=== PATIENT | male | born 1995 | race Caucasian/White ===

== ENCOUNTER 2016-10-08 21:40 | Emergency (ER) | payer BC ==
[~2016-10-08] VITALS: Ht 177.8 cm; Wt 106.2 kg
[2016-10-08 21:46] VITALS: TEMP 36.6; Ht 177.8 cm; Wt 106.2 kg
[2016-10-08] MEDS ORDERED: CEFTRIAXONE SOD INJ 1 GM ADDVIAL IV STA (22:42)
[2016-10-08] MEDS ORDERED: SULFAMETHOXAZOLE/TRIMETHOPRIM DS 800/160MG TAB PO ONE (22:45)
[2016-10-08] MEDS ORDERED: CEPHALEXIN 500MG HOME PACK 1 EA BTL PO ONE (22:45)
[2016-10-08] MEDS ORDERED: SEPTRA DS HOME PACK 1 EA VIAL PO ONE (22:45)
[2016-10-08] MEDS ORDERED: CEPHALEXIN MONOHYDRATE 250 MG CAP PO ONE (22:45)
[2016-10-08 22:59] LABS: BASO % 0.3 %; BASO ABS # 0.02 K/uL (0-0.2); COMPLETE YES; EOS % 2.6 %; HEMATOCRIT 43.2 % (42-52); IG% 0.1 %; LYMPH % 25.7 %; MEAN CELL VOLUME 84.5 fL (80-100); MEAN CORPUSCULAR HEMOGLOBIN 29.7 pg (25-34); MEAN CORPUSCULAR HGB CONC 35.2 g/dl (32-36); MEAN PLATELET VOLUME 10.4 fL (7.4-10.4); MONO % 9.1 %; NEUT % 62.2 %; PLATELET COUNT 186 K/uL (130-400); RED BLOOD COUNT 5.11 M/uL (4.7-6.1); WHITE BLOOD COUNT 7.77 K/uL (4.8-10.8)
[2016-10-08 23:15] LABS: BUN/CREATININE RATIO 13.8 (10-20); CALCIUM 8.2 mg/dl (8.5-10.1); CREATININE 1.1 mg/dl (0.60-1.40); POTASSIUM 3.6 mmol/L (3.5-5.1)
[2016-10-08] MEDS ORDERED: SULF-183 PO (23:44)
[2016-10-08] MEDS ORDERED: TRAM-10 PO (23:44)
[2016-10-08] MEDS ORDERED: TRAMADOL HCL 50 MG HOME PACK PO ONE (23:45)
[2016-10-08 23:57] VITALS: BP 111/62; PULSE 74; O2SAT 97
--- NOTE | 2016-10-09 00:12 | EMERGENCY ROOM VISIT NOTE ---
History First contact with patient: 22:26 Chief Complaint: INFECTION Stated Complaint: BITE, SWOLLEN ARM, PAINFUL,POSSIBLE INFECTION Nursing Triage Summary: Patients girlfriend reports was seen at [place] for a bite on his finger. They didn't do anything for it and now a day later my arm and lymph nodes under my arm are swollen. History of Present Illness The patient is a 21 year old male who presents to the Emergency Room with complaints of a possible left third finger infection, spreading into the arm and armpit. The patient reports that he noticed redness of his finger 2 weeks ago. He tried to drain it with a needle several days later. When the redness continued to worsen, he was seen at the [place] emergency department on . He was given a prescription for Keflex, but did not fill the prescription as he was on travel the day after his ER evaluation. He now reports pain extending into the forearm, and has a large lump to his armpit. The patient also reports that he felt feverish and chilled last night. The patient is right -hand-dominant. He rates his discomfort an 8 out of 10. Tetanus immunization is up-to-date. The patient denies any prior history of antibiotic resistant infections. The patient does admit that he chews his nails. Review of Systems HEENT: Denies dizziness, visual problems, hearing loss, tinnitus. Denies difficulty swallowing or oral lesions. PULMONARY: Denies cough, shortness of breath, sputum production or hemoptysis. CARDIOVASCULAR: Denies chest pain, palpitations, dyspnea on exertion, orthopnea or peripheral edema. GASTROINTESTINAL: Denies diarrhea, constipation, nausea, vomiting, or abdominal pain. GENITOURINARY: Denies dysuria, frequency, urgency or nocturia. NEUROLOGIC: Denies history of epilepsy, CVA, TIA or chronic headaches. MUSCULOSKELETAL: Denies history of joint tenderness/swelling. SKIN: Denies rashes or lesions. PSYCHIATRIC: Denies history of depression or mental illness. ENDOCRINE: Denies history of diabetes or thyroid disorders. Past Medical/Surgical History Medical Problems: (1) No significant past medical history Surgical Problems: (1) No history of previous surgery Family History FH: cancer FH: hypertension Social History Smoking Status: Never Smoker Alcohol Use: occasionally Marital Status: single Occupation Status: employed Current/Historical Medications Scheduled Sulfamethoxazole-Trimethoprim (Smz-Tmp Ds), 1 TAB PO BID Scheduled PRN Tramadol (Ultram), 1-2 TAB PO Q4H PRN for Pain Allergies Coded Allergies: No Known Allergies (Unverified , 10/08/16) Physical Exam Vital Signs Date Time Temp Pulse Resp B/P Pulse Ox O2 Delivery O2 Flow Rate FiO2 10/08/16 23:57 74 16 111/62 97 10/08/16 22:58 76 16 121/52 97 Room Air 10/08/16 21:46 36.6 82 18 128/68 97 Room Air Physical Exam CONSTITUTIONAL: Healthy and well nourished. Alert and oriented X 3 with positive affect. Patient does not appear acutely or toxic. HEENT: Normocephalic, atraumatic. Pupils equal, round and reactive. NECK: Full active range of motion without discomfort. RESPIRATORY: Clear to auscultation bilaterally with no wheezing, crackles, rhonchi or stridor. CARDIOVASCULAR: Regular rate and rhythm with no murmurs, rubs or gallops. GASTROINTESTINAL: Bowel sounds present in all quadrants. Soft and nontender to palpation. MUSCULOSKELETAL: Examination shows erythema of the proximal nail fold without any fluctuance or drainage. He has mild tenderness to palpation through the dorsal forearm with an area of erythema to the posterior proximal forearm and posterior triceps region. Patient is able to flex and extend the left third finger and wrist without discomfort. Capillary refill is less than 2 seconds. INTEGUMENTARY: No rash or other significant dermatologic conditions noted. NEUROLOGIC: Left third finger is sensory intact. Medical Decision & Procedures Laboratory Results 10/08/16 22:49 Red Blood Count 5.11, Mean Corpuscular Volume 84.5, Mean Corpuscular Hemoglobin 29.7, Mean Corpuscular Hemoglobin Concent 35.2, Mean Platelet Volume 10.4, Neutrophils (%) (Auto) 62.2, Lymphocytes (%) (Auto) 25.7, Monocytes (%) (Auto) 9.1, Eosinophils (%) (Auto) 2.6, Basophils (%) (Auto) 0.3, Neutrophils # (Auto) 4.83, Lymphocytes # (Auto) 2.00, Monocytes # (Auto) 0.71, Eosinophils # (Auto) 0.20, Basophils # (Auto) 0.02 10/08/16 22:49 Test 10/08/16 22:49 White Blood Count 7.77 K/uL (4.8-10.8) Red Blood Count 5.11 M/uL (4.7-6.1) Hemoglobin 15.2 g/dL (14.0-18.0) Hematocrit 43.2 % (42-52) Mean Corpuscular Volume 84.5 fL (80-100) Mean Corpuscular Hemoglobin 29.7 pg (25-34) Mean Corpuscular Hemoglobin Concent 35.2 g/dl (32-36) Platelet Count 186 K/uL (130-400) Mean Platelet Volume 10.4 fL (7.4-10.4) Neutrophils (%) (Auto) 62.2 % Lymphocytes (%) (Auto) 25.7 % Monocytes (%) (Auto) 9.1 % Eosinophils (%) (Auto) 2.6 % Basophils (%) (Auto) 0.3 % Neutrophils # (Auto) 4.83 K/uL (1.4-6.5) Lymphocytes # (Auto) 2.00 K/uL (1.2-3.4) Monocytes # (Auto) 0.71 K/uL (0.11-0.59) Eosinophils # (Auto) 0.20 K/uL (0-0.5) Basophils # (Auto) 0.02 K/uL (0-0.2) RDW Standard Deviation 38.0 fL (36.4-46.3) RDW Coefficient of Variation 12.3 % (11.5-14.5) Immature Granulocyte % (Auto) 0.1 % Immature Granulocyte # (Auto) 0.01 K/uL (0.00-0.02) Erythrocyte Sedimentation Rate 17 mm/hr (0-14) Anion Gap 8.0 mmol/L (3-11) Est Creatinine Clear Calc Drug Dose 127.5 ml/min Estimated GFR () 109.1 Estimated GFR (Non- 94.1 BUN/Creatinine Ratio 13.8 (10-20) Calcium Level 8.2 mg/dl (8.5-10.1) The above labs were reviewed and were grossly normal. Medications Administered Medications (Trade) Dose Ordered Sig/Danilo Route Start Time Stop Time Status Last Admin Dose Admin Ceftriaxone Sodium (Rocephin Inj) 1 gm NOW STAT IV 10/08/16 22:42 10/08/16 22:45 DC 10/08/16 22:57 1 GM Trimethoprim/ Sulfamethoxazole (Sulfameth/ Trimeth Ds 800/ 160MG Home Pack) 1 homepack UD ONCE PO 10/08/16 22:45 10/08/16 22:46 DC 10/08/16 23:52 1 HOMEPACK Trimethoprim/ Sulfamethoxazole (Septra Ds 800/ 160MG Tab) 1 tab NOW ONCE PO 10/08/16 22:45 10/08/16 22:46 DC 10/08/16 22:57 1 TAB Cephalexin Monohydrate (Keflex 500MG Home Pack) 1 homepack NOW ONCE PO 10/08/16 22:45 10/08/16 22:46 DC 10/08/16 23:52 1 HOMEPACK Cephalexin Monohydrate (Keflex Cap) 500 mg NOW ONCE PO 10/08/16 22:45 2 22:46 DC 10/08/16 22:57 500 MG Tramadol HCl (Ultram Home Pack) 1 homepack UD ONCE PO 10/08/16 23:45 10/08/16 23:46 DC 10/08/16 23:52 1 HOMEPACK ED Course Patient history and physical exam were performed. Nurse's notes were reviewed. The patient is afebrile. I did suggest intravenous antibiotics, and the patient was in agreement. IV access was established, and labs were drawn. The patient was administered IV Rocephin, and Bactrim DS orally. Review of labs shows no significant findings. The patient was instructed to get his Keflex prescription filled. He was also provided an additional prescription for Bactrim DS and Ultram. He was encouraged to alternate ibuprofen and Tylenol for baseline pain relief. He was instructed to follow-up with his PCP, or return to the emergency department, for recheck in 48 hours. The patient reports that he has an appointment [facility] morning for another medical problem. At this point, he was advised that the infection does not need to be drained as there is no collection of fluid or fluctuance. The patient was happy with plan of care, voiced understanding of all discharge instructions, and rated his pain a 3 out of 10 at the time of discharge. Medical Decision Impression Primary Impression: Left third finger cellulitis Additional Impression: Axillary adenopathy Departure Information Prescriptions Tramadol (Ultram) 50 Mg Tab 1-2 TAB PO Q4H Y for Pain, #20 TAB For Initial Treatment Prov: Arnie Erazo PA 10/08/16 Sulfamethoxazole-Trimethoprim (SMZ-TMP DS) 1 Tab Tab 1 TAB PO BID for 7 Days, #14 TAB Prov: Arnie Erazo PA 10/08/16 Referrals Bernie Short M.D. (PCP) Patient Instructions My [facility] Problem Qualifiers
== END 2016-10-08 23:59 | disposition home or self-care (01) ==
LOC: C.EDB 21:43
DX: L03.012 Cellulitis of left finger (principal); R59.9 Enlarged lymph nodes, unspecified

== ENCOUNTER 2016-10-13 21:31 | Emergency (ER) | payer BC ==
[~2016-10-13] VITALS: Ht 177.8 cm; Wt 105.7 kg
[~2016-10-13 21:31] MED LIST: SULF-183 PO; TRAM-10 PO
[2016-10-13 21:53] VITALS: TEMP 37.1; Ht 177.8 cm; Wt 105.7 kg
[2016-10-13] MEDS ORDERED: LISD20CA PO (22:24)
[2016-10-13] MEDS ORDERED: CEPH500C2 PO (22:25)
[2016-10-13] MEDS ORDERED: MULT-1027 PO (22:29)
--- NOTE | 2016-10-13 22:57 | DIAGNOSTIC IMAGING REPORT ---
ULTRASOUND VENOUS DOPPLER ULTRASOUND OF THE LEFT UPPER EXTREMITY CLINICAL HISTORY: Left arm swelling COMPARISON STUDY: No previous studies for comparison. FINDINGS: The internal jugular subclavian axillary and cephalic veins appear patent. There is thrombus with thin the brachial and mid basilic vein. The radial and ulnar veins appear patent. There is left axillary lymphadenopathy. IMPRESSION: 1. Left brachial and basilic vein DVT 2. Left axillary lymphadenopathy. Electronically signed by: Amos Cantu M.D. 10/13/2016 10:56 PM Dictated Date/Time: 10/13/2016 10:53 PM
[2016-10-13] MEDS ORDERED: APIX1TAB3 PO (23:24)
--- NOTE | 2016-10-13 23:26 | EMERGENCY ROOM VISIT NOTE ---
History Report prepared by Chance: Aracelis Zhang Under the Supervision of: Dr. Dominik Daugherty D.O. First contact with patient: 21:57 Chief Complaint: INFECTION Stated Complaint: INFECTION IN FINGER AND ARM History of Present Illness The patient is a 21 year old male who presents to the Emergency Room with complaints of worsening infection of the left arm starting one week BURR SANDER. The patient states that he had an infection in his finger on his left hand and was seen at the ED 7 days ago. He states he has been taking his medication regularly for the infection. He states that the pain has radiated up his arm and he has a swollen bump on his arm which concerned him. The patient states that he was also having swollen lymph nodes in his armpits. His symptoms concerned him for a possible blood clot causing him to be seen in the ED tonight. He denies any streaks going up his left arm but states that he has a family history of blood clots. Source of History: patient Onset: one week BURR SANDER Position: arm (left), finger(s) (left hand) Timing: worsening Note: Associated symptoms: swollen bump on left arm, swollen lymph nodes in armpit. patient denies any red streaks going up his left arm. Review of Systems See HPI for pertinent positives & negatives. A total of 10 systems reviewed and were otherwise negative. Past Medical & Surgical Medical Problems: (1) No significant past medical history Surgical Problems: (1) History of tonsillectomy Family History FH: cancer FH: hypertension Social History Smoking Status: Never Smoker Alcohol Use: occasionally Marital Status: single Occupation Status: employed Current/Historical Medications Scheduled Apixaban (Eliquis), 10 MG PO BID Cephalexin Monohydrate (Keflex), 500 MG PO QID Lisdexamfetamine Dimesylate (Vyvanse), 10 MG PO DAILY Multiple Vitamin (Multi Vitamin), 1 TAB PO DAILY Sulfamethoxazole-Trimethoprim (Smz-Tmp Ds), 1 TAB PO BID Scheduled PRN Tramadol (Ultram), 1-2 TAB PO Q4H PRN for Pain Allergies Coded Allergies: No Known Allergies (Unverified , 10/08/16) Physical Exam Vital Signs Date Time Temp Pulse Resp B/P Pulse Ox O2 Delivery O2 Flow Rate FiO2 10/13/16 23:08 86 16 107/71 98 Room Air 10/13/16 21:53 37.1 87 19 147/86 99 Room Air Physical Exam CONSTITUTIONAL/VITAL SIGNS: Reviewed / noted above. GENERAL: Non-toxic in appearance. INTEGUMENTARY: Warm, dry, and [place]. HEAD: Normocephalic. EYES: without scleral icterus or trauma. ENT/OROPHARYNX: clear and moist. LYMPHADENOPATHY/NECK: Is supple without lymphadenopathy or meningismus. RESPIRATORY: Lungs clear and equal. CARDIOVASCULAR: Regular rate and rhythm. GI/ABDOMEN: Soft and nontender. No organomegaly or pulsatile mass. No rebound or guarding. Normal bowel sounds. EXTREMITIES: Warm and well perfused.Mild tenderness to palpation of the left medial humerus. BACK: No CVA tenderness. NEUROLOGICAL: Intact without focal deficits. PSYCHIATRIC: normal affect. MUSCULOSKELETAL: Normally developed with good muscle tone. Medical Decision & Procedures ER Provider Diagnostic Interpretation: US results as stated below per my review and radiologist interpretation: ULTRASOUND VENOUS DOPPLER ULTRASOUND OF THE LEFT UPPER EXTREMITY CLINICAL HISTORY: Left arm swelling COMPARISON STUDY: No previous studies for comparison. FINDINGS: The internal jugular subclavian axillary and cephalic veins appear patent. There is thrombus with thin the brachial and mid basilic vein. The radial and ulnar veins appear patent. There is left axillary lymphadenopathy. IMPRESSION: 1. Left brachial and basilic vein DVT 2. Left axillary lymphadenopathy. Electronically signed by: Amos Cantu M.D. 10/13/2016 10:56 PM Dictated Date/Time: 10/13/2016 10:53 PM ED Course 2201: Previous medical records were reviewed. The patient was evaluated in room C10. A complete history and physical examination was performed. 2320: On reevaluation, the patient is resting comfortably. I discussed the results and findings with the patient. He verbalized agreement of the treatment plan. The patient was discharged home. 2330: Ordered Eliquis Tab 10 mg PO. Medical Decision Differential diagnosis: Etiologies such as DVT, musculoskeletal, infection, joint effusion, trauma, lymphedema, idiopathic, CHF, as well as others were entertained.. This is a 21-year-old male who presents to the ED with a chief complaint of left arm pain. The patient was here 5 days ago for an infection of his left finger. He is started on antibiotics for this. He states that his symptoms did not improve and he has tenderness to palpation the left medial arm and humeral area. He was concerned about blood clots as he has a family history of them. Ultrasound the left arm reveals a left brachial basilic DVT. The patient was told the results of tests. He was started on Eliquis. He is otherwise healthy and does not take medication. The patient will follow-up with his PCP for recheck within a seven-day period. He was advised to use caution as trauma could cause increased bleeding as he is on an anticoagulant. Impression Primary Impression: Deep venous thrombosis of left upper extremity Scribe Attestation The scribe's documentation has been prepared under my direction and personally reviewed by me in its entirety. I confirm that the note above accurately reflects all work, treatment, procedures, and medical decision making performed by me. Departure Information Dispostion Home / Self-Care Prescriptions Apixaban (ELIQUIS) 5 Mg Tab 10 MG PO BID for 7 Days, #28 TAB Prov: Dominik Daugherty D.O. 10/13/16 Referrals Bernie Short M.D. (PCP) Forms HOME CARE DOCUMENTATION FORM, IMPORTANT VISIT INFORMATION, WORK / SCHOOL INSTRUCTIONS Patient Instructions DVT Procedures, My [facility] Additional Instructions Take Apixaban (Eliquis) 10mg twice a day for 7 days. You will need to see your doctor prior to finishing the 7 days to get additional prescription for 5mg twice a day. Return for any concerns.
[2016-10-13] MEDS ORDERED: APIXABAN 2.5 MG TAB PO ONE (23:30)
[2016-10-14 00:05] VITALS: BP 119/67; PULSE 78; O2SAT 98
== END 2016-10-14 | disposition home or self-care (01) ==
LOC: C.EDB 21:32 → C.EDC 10-14
DX: I82.622 Acute embolism and thrombosis of deep veins of left upper extremity (principal)

== ENCOUNTER 2017-01-24 02:01 | Emergency (ER) | payer BC ==
[~2017-01-24] VITALS: Ht 177.8 cm; Wt 96.1 kg
[~2017-01-24 02:01] MED LIST changes: +CEPH500C2 PO; +LISD20CA PO; +MULT-1027 PO; -SULF-183 PO
[2017-01-24 02:07] VITALS: BP 110/76; PULSE 71; TEMP 36.7; O2SAT 98; Ht 177.8 cm; Wt 96.1 kg
[2017-01-24] MEDS ORDERED: APIX1TAB3 PO ×2 (02:22→02:24)
[2017-01-24] MEDS ORDERED: APIXABAN 2.5 MG TAB PO ONE (02:30)
--- NOTE | 2017-01-24 02:32 | EMERGENCY ROOM VISIT NOTE ---
History First contact with patient: 02:10 Chief Complaint: MEDICATION REFILL REQUEST Stated Complaint: MEDICATION REQUEST History of Present Illness The patient is a 21 year old male who presents to the Emergency Room for a medication refill. The patient has a history of DVT and was seen yesterday at the [facility] for testing. The patient recently moved to [place], but has services established here locally. He states that he forgot his Eliquis at home, and needs a few days worth of the medication. The patient is without additional complaint and is feeling well. He does not have chest pain or shortness of breath. Review of Systems More than 10 systems were reviewed and otherwise negative with the exception of history of present illness. Past Medical/Surgical History Medical Problems: (1) No significant past medical history Surgical Problems: (1) History of tonsillectomy Family History FH: cancer FH: hypertension Social History Smoking Status: Never Smoker Alcohol Use: occasionally Marital Status: single Occupation Status: employed Current/Historical Medications Scheduled Apixaban (Eliquis), 5 MG PO BID Apixaban (Eliquis), 5 MG PO BID Lisdexamfetamine Dimesylate (Vyvanse), 10 MG PO DAILY Multiple Vitamin (Multi Vitamin), 1 TAB PO DAILY Allergies Coded Allergies: No Known Allergies (Unverified , 01/24/17) Physical Exam Vital Signs Date Time Temp Pulse Resp B/P Pulse Ox O2 Delivery O2 Flow Rate FiO2 01/24/17 02:07 36.7 71 18 110/76 98 Room Air Physical Exam VITALS: Vitals are noted on the nurse's note and reviewed by myself. Vital signs stable. GENERAL: Well-developed, well-nourished, white male, who is in no acute distress and resting comfortably. Patient is cooperative with the examination. HEAD: Normocephalic atraumatic. HEART: Regular rate and rhythm without murmurs gallops or rubs. LUNGS: Clear to auscultation bilaterally without wheezes, rales or rhonchi. No retractions or accessory muscle use. Medical Decision & Procedures ED Course Physical exam and history were performed. Nursing notes and EMR were reviewed. Patient appears to have a history of DVT and needs a refill of his Eliquis. The patient appears well on examination, and does not appear to have an acute process. The patient was given a dose of his medication here in the ER. I will write a prescription for the next 7 days, which should be more than adequate until he returns home. The patient was invited back to the ER with any new, worsening, or concerning symptoms. The chart was completed utilizing [employer] Speech Voice Recognition Software. Grammatical errors, random word insertions, pronoun errors, and incomplete sentences are an occasional consequence of this system due to software limitations, ambient noise, and hardware issues. Any formal questions or concerns about the content, text, or information contained within the body of this dictation should be directly addressed to the provider for clarification. . Medical Decision Differential diagnosis includes, but is not limited to: DVT/PE, medication refill, and others Impression Primary Impression: Encounter for medication refill Additional Impression: DVT (deep venous thrombosis) Departure Information Dispostion Home / Self-Care Condition GOOD Prescriptions Apixaban (ELIQUIS) 5 Mg Tab 5 MG PO BID for 7 Days, #14 TAB Prov: Cecil Farris PA-C 01/24/17 Forms HOME CARE DOCUMENTATION FORM, IMPORTANT VISIT INFORMATION Patient Instructions My [facility] Additional Instructions You were seen and evaluated today on an emergency basis only. This is not a substitute for, or an effort to provide, complete comprehensive medical care. It is not possible to recognize and treat all injuries or illnesses in a single emergency department visit. For this reason it is recommended that you followup with your primary care physician or other sales support worker for ongoing care and evaluation. Continue Eliquis as prescribed. You are welcome to return to the emergency department anytime with new, worsening, or concerning symptoms. Problem Qualifiers
== END 2017-01-24 02:32 | disposition home or self-care (01) ==
LOC: C.EDB 02:02
DX: Z76.0 Encounter for issue of repeat prescription (principal); Z86.718 Personal history of other venous thrombosis and embolism